=== PATIENT | female | born 1985 | race Caucasian/White ===

== ENCOUNTER 2021-05-12 13:01 | Emergency (ER) | payer SELFPAY ==
[~2021-05-12] VITALS: Ht 157.5 cm; Wt 78.8 kg
[2021-05-12 13:26] VITALS: BP 160/99
[2021-05-12] MEDS ORDERED: ACETAMINOPHEN 500 MG TABLET PO ONE (14:00)
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
[2021-05-12 16:16] LABS: BACTERIA,URINE MOD /HPF (0-FEW); BILIRUBIN,URINE NEG (NEG); CLARITY,URINE HAZY; COLOR,URINE YELLOW; GLUCOSE,URINE NEG (NEG); NITRITE,URINE POS (NEG); RBC,URINE 0 /HPF (0-2); SQUAMOUS EPITHELIAL CELL,UR OCC /LPF; WBC,URINE >40 /HPF (0-4)
[2021-05-12 16:18] LABS: AMPHETAMINE/METHAMPHETAMINE POS (NEG); BARBITURATES NEG (NEG); BENZODIAZEPINES NEG (NEG); CANNABINOIDS NEG (NEG); COCAINE NEG (NEG); METHADONE NEG (NEG); OPIATES NEG (NEG); PHENCYCLIDINE NEG (NEG)
[2021-05-12 16:50] LABS: U PREG PATIENT NEGATIVE (NEG)
== END 2021-05-12 14:14 | disposition left against medical advice (07) ==
LOC: ER 13:01
DX: S05.12XA Contusion of eyeball and orbital tissues, left eye, initial encounter (principal); S05.11XA Contusion of eyeball and orbital tissues, right eye, initial encounter; M25.531 Pain in right wrist; Y08.89XA Assault by other specified means, initial encounter; Y93.89 Activity, other specified; Y92.89 Other specified places as the place of occurrence of the external cause; Y99.8 Other external cause status
CPT/HCPCS: 36415; 80307; 81001; 81025; 87086; 87186; 99283